=== PATIENT | female | born 1965 | race Caucasian/White ===

== ENCOUNTER → 2017-09-13 | Outpatient (CLI) | payer MEDICARE | END | disposition home or self-care (01) | LOC: PETSC 10:18 | DX: C85.90 Non-Hodgkin lymphoma, unspecified, unspecified site (principal); Z85.72 Personal history of non-Hodgkin lymphomas | CPT/HCPCS: 78815; A9552 ==

== ENCOUNTER → 2017-09-25 | Outpatient (CLI) | payer MEDICARE ==
[~2017-09-25] MED LIST: LIDOCAINE WITH 8.4% SOD BICARB 3 ML DISP.SYRIN.; MIDAZOLAM HCL/PF 2 MG/2 ML VIAL.; fentaNYL PF VIAL 100 MCG/2 ML VIAL
[2017-09-25 09:22] LABS: ADD MAN DIFF? NO
[2017-09-25 09:27] LABS: BASO # 0.1 x10^3/uL (0.0-0.2); BASO % 1 % (0-3); EOS # 0.3 x10^3/uL (0.0-0.7); EOS % 2 % (0-3); HEMATOCRIT 42.9 % (36.0-47.0); HEMOGLOBIN 14.4 g/dL (12.0-15.5); LYMPH # 3.8 x10^3/uL (1.0-4.8); LYMPH % 30 % (24-48); MEAN CORPUSCULAR HEMOGLOBIN 31 pg (25-35); MEAN CORPUSCULAR HGB CONC 33 g/dL (31-37); MEAN CORPUSCULAR VOLUME 92 fL (79-100); MONO # 0.6 x10^3/uL (0.0-1.1); MONO % 5 % (0-9); NEUT # 7.9 x10^3uL (1.8-7.7); NEUT % 63 % (31-73); PLATELET COUNT 213 x10^3/uL (140-400); RED BLOOD COUNT 4.65 x10^6/uL (3.50-5.40); RED CELL DISTRIBUTION WIDTH 15.2 % (11.5-14.5); WHITE BLOOD COUNT 12.7 x10^3/uL (4.0-11.0)
[2017-09-25 09:42] LABS: PARTIAL THROMBOPLASTIN TIME 33 SEC (24-38); PROTHROMBIN TIME PATIENT 12.5 SEC (11.7-14.0)
[2017-09-25] MEDS: fentaNYL PF VIAL 100 MCG/2 ML VIAL IV ×4 (10:15)
[2017-09-25] MEDS: LIDOCAINE WITH 8.4% SOD BICARB 3 ML DISP.SYRIN. IJ ×2 (10:15)
[2017-09-25] MEDS: MIDAZOLAM HCL/PF 2 MG/2 ML VIAL. IV ×2 (10:15)
== END | disposition home or self-care (01) ==
LOC: INTRAD 08:58
DX: K11.9 Disease of salivary gland, unspecified (principal); E78.00 Pure hypercholesterolemia, unspecified; I10 Essential (primary) hypertension; J44.9 Chronic obstructive pulmonary disease, unspecified; E66.9 Obesity, unspecified; F41.9 Anxiety disorder, unspecified; F32.9 Major depressive disorder, single episode, unspecified; E11.9 Type 2 diabetes mellitus without complications; Z68.41 Body mass index [BMI] 40.0-44.9, adult; Z90.710 Acquired absence of both cervix and uterus; Z72.0 Tobacco use; Z87.39 Personal history of other diseases of the musculoskeletal system and connective tissue; Z79.01 Long term (current) use of anticoagulants
CPT/HCPCS: 36415; 42400; 76942; 85025; 85610; 85730; 88184; 88185; 88305; 99152; J2250; J3010

== ENCOUNTER → 2018-04-18 | Outpatient (CLI) | payer MEDICARE ==
[2017-09-25 12:15] VITALS: BP 136/75
[~2018-04-18] MED LIST changes: +ACYC200C PO; +ALPR1TAB2 PO; +ASPI-482 PO; +ATEN25TA PO; +CALC-98 PO; +CHOL500045 PO; +CYCL10TA2 PO; +DOXY100T PO; +ESOM40CA PO; +FLUO40CA9 PO; +FLUT1DIS5 IH; +FOLI1TAB16 PO; +GABA-586 PO; +GLYB5TAB3 PO; +HYDR-2766 PO; -LIDOCAINE WITH 8.4% SOD BICARB 3 ML DISP.SYRIN.; +METF10007 PO; +METH-38 PO; +METH2.5T PO; +METR500T8 PO; -MIDAZOLAM HCL/PF 2 MG/2 ML VIAL.; +PRED1TAB3 PO; +QUET100T4 PO; +RANI150T21 PO; +SIMV40TA3 PO; +TOLT4CAP PO; +TRAZ-85 PO; -fentaNYL PF VIAL 100 MCG/2 ML VIAL
--- NOTE | 2018-04-18 12:53 | RAD ---
FDG tumor localization scan, PET/CT, 04/18/2018: History: Restaging lymphoma Following IV injection of 11.8 mCi of 18 F-FDG, imaging was performed from the skull base to the proximal thighs. The noncontrast CT component was performed for attenuation correction and anatomic localization purposes rather than for primary diagnosis. The patient's blood glucose level at the time of injection was 177 MG/DL. Comparison is made to a study from 09/13/2017. Normal physiologic FDG uptake is seen in the neck. The CT component again demonstrates a small 10 x 17 mm nodule within the medial aspect of the right parotid gland. It appears to have decreased slightly in size. It demonstrates only low level FDG uptake with a maximum SUV of 2.5, similar to that seen on the previous study. The degree of FDG uptake is similar to that of the mediastinal background. No abnormal pulmonary, mediastinal or hilar FDG uptake is seen. The small 10 mm lymph node seen along the lateral aspect of the AP window on the left is unchanged in size. No abnormal FDG uptake relative to the mediastinal background is currently seen. Normal GI tract and urinary tract activity is present in the abdomen and pelvis. The hepatic uptake is heterogeneous as is often the case. No hypermetabolic abdominal or pelvic lesion is seen. Incidental CT findings include the presence of a spinal stimulator lead extending into the thoracic spinal canal. Mild mosaic attenuation of the lungs is unchanged. IMPRESSION: 1. Slight interval decrease in size of the small right parotid nodule, demonstrating only low level FDG uptake. 2. No additional FDG PET findings to suggest residual or recurrent lymphoma.
== END | disposition home or self-care (01) ==
LOC: PETSC 10:26
DX: K11.8 Other diseases of salivary glands (principal); I10 Essential (primary) hypertension; E11.9 Type 2 diabetes mellitus without complications; E78.00 Pure hypercholesterolemia, unspecified; Z85.72 Personal history of non-Hodgkin lymphomas; Z87.39 Personal history of other diseases of the musculoskeletal system and connective tissue
CPT/HCPCS: 78815; A9552

== ENCOUNTER → 2019-06-13 | Outpatient (CLI) | payer MEDICARE ==
[2017-09-25 12:15] VITALS: BP 136/75
[~2019-06-13] MED LIST changes: -GABA-586 PO; +GABA300C18 PO; -HYDR-2766 PO; +HYDR-2769 PO; +METR-34 PO; -METR500T8 PO; +RANI-376 PO; -RANI150T21 PO; +SIMV40TA18 PO; -SIMV40TA3 PO; +TRAZ-118 PO; -TRAZ-85 PO
--- NOTE | 2019-06-13 14:16 | RAD ---
PET/CT imaging from the skull through the midthigh History: Lymphoma. Restaging. Comparison: April 18, 2018 Technique: PET examination was performed from the skull base to the proximal thighs after intravenous administration of 14.8 mCi Fluorine [address] scan was performed for the purposes of localization and attenuation, not for primary diagnosis. Blood glucose level at time of injection was 189 mg/dl. PQRS Compliance Statement: One or more of the following individualized dose reduction techniques were utilized for this examination: 1. Automated exposure control 2. Adjustment of the mA and/or kV according to patient size 3. Use of iterative reconstruction technique Findings: Head and neck: Parapharyngeal hypermetabolic activity is seen bilaterally with a max SUV of 3.7. Physiologic hypermetabolic muscle activity is evident. CHEST: Left hilar activity is seen with a max SUV 3.2. Right hilar activity is seen with the max SUV of 2.4. No bulky lymph nodes are seen in this area otherwise. There is vascular physiologic activity. There is a 2.2 cm lymph node within the aorta pulmonary window. This demonstrates hypermetabolic activity max SUV of 2.1. Physiologic hypermetabolic muscle activity is seen. ABDOMEN AND PELVIS: GI and physiologic activity is evident. Physiologic muscle activity is apparent especially the left paraspinous muscle region and gluteal regions bilaterally.. Spleen is not enlarged. Mild physiologic activity within the spleen. There is physiologic activity within the liver. No abnormally enlarged or hypermetabolic abdominal or pelvic lymph nodes are seen. MUSCULOSKELETAL: With the exception of the physiologic activity just described, no other abnormal osseous or metabolic activity is seen. IMPRESSION Probable physiologic activity involving the parapharyngeal region bilaterally. Oral pharyngeal clinical exam is recommended. No abnormal cervical or abdominal or pelvic lymphadenopathy. There is bilateral hilar hypermetabolic activity but no bulky lymphadenopathy is seen here. There is a 2.2 cm area aortic pulmonary window lymph node with mild hypermetabolic activity. This lymph node measured 1.8 cm previously in 2018. There are multiple areas of physiologic muscle activity throughout especially the left paraspinous region and the gluteal regions bilaterally. This may be due to involuntary muscle movements or spasm or shivering. This could be secondary or myositis if there are clinical findings of such.
== END | disposition home or self-care (01) ==
LOC: PETSC 08:35
PROVIDERS: ATTEND Internal Medicine Medical Oncology
DX: C88.4 Extranodal marginal zone B-cell lymphoma of mucosa-associated lymphoid tissue [MALT-lymphoma] (principal)
CPT/HCPCS: 78815; A9552